=== PATIENT | female | born 1965 | race Caucasian/White ===

== ENCOUNTER 2020-11-05 22:01 | Emergency (ER) | payer MEDICARE ==
[2020-11-05] MEDS ORDERED: ATORVASTATIN CA40 MG PO (22:15)
[2020-11-05] MEDS ORDERED: LISINOPRIL40 MG PO (22:15)
[2020-11-06 00:32] LABS: HEMATOCRIT 36.8 % (37.0-47.0); HEMOGLOBIN 11.8 g/dL (12.5-16.0); MEAN CELL VOLUME 96 fl (78-100); MEAN CORPUSCULAR HEMOGLOBIN 31 pg (27-31); MEAN CORPUSCULAR HGB CONC 32 g/dL (33-37); MEAN PLATELET VOLUME 9.9 fl (7.4-10.4); PLATELET COUNT 180 K/mm3 (130-400); RED BLOOD COUNT 3.83 M/mm3 (4.10-5.30); RED CELL DISTRIBUTION WIDTH 12.9 % (11.5-14.5); WHITE BLOOD COUNT 5.3 K/mm3 (4.8-10.8)
[2020-11-06 00:36] LABS: ALBUMIN 3.4 g/dL (3.5-5.0); POTASSIUM 3.4 mmol/L (3.5-5.1)
[2020-11-06 00:38] LABS: CALCIUM 7.9 mg/dL (8.3-10.5)
[2020-11-06 00:41] LABS: TOTAL BILIRUBIN 0.4 mg/dL (0.2-1.2)
[2020-11-06 00:44] LABS: PH-URINE 5.5 (5.0 - 8.0); URINE APPEARANCE HAZY; URINE BILIRUBIN NEGATIVE (NEGATIVE); URINE BLOOD TRACE (NEGATIVE); URINE COLOR YELLOW; URINE GLUCOSE NEGATIVE (NEGATIVE); URINE KETONE NEGATIVE (NEGATIVE); URINE LEUKOCYTE ESTERASE TRACE (NEGATIVE); URINE NITRATE NEGATIVE (NEGATIVE); URINE PROTEIN(semi-quant) 1+ mg/dL (NEGATIVE); URINE UROBILINOGEN NORMAL (NORMAL)
[2020-11-06 00:45] LABS: URINE MUCUS PRESENT (NOT PRESENT)
[2020-11-06 00:59] LABS: BAND 25 % (0-10); LYMPHOCYTE 9 % (20-51); MONOCYTE 9 % (3-10); NEUTROPHILS 57 % (42-75)
[2020-11-06 06:02] VITALS: BP 145/90
== END 2020-11-06 06:03 | disposition short-term general hospital (02) ==
LOC: ED 22:01
PROVIDERS: Nurse Practitioner Family
DX: K51.90 Ulcerative colitis, unspecified, without complications (principal); I49.3 Ventricular premature depolarization; D72.825 Bandemia; I10 Essential (primary) hypertension; E78.5 Hyperlipidemia, unspecified; Z86.73 Personal history of transient ischemic attack (TIA), and cerebral infarction without residual deficits
CPT/HCPCS: J0744; J1885; J2270; J2405; J2550; J2920; J3490; J7030; Q9967